=== PATIENT | female | born 1955 | race Two or more races ===

== ENCOUNTER 2021-12-26 16:35 | Emergency (ER) | payer MEDICARE, OTHER ==
[~2021-12-26] VITALS: Ht 162.6 cm; Wt 65.8 kg
[2021-12-26 16:40] VITALS: BP 145/70
--- NOTE | 2021-12-26 16:40 | NUR ---
BIBRA 89 C/O LEFT ANKLE PETTY AFTER CINDY GHER ANKLE AT THE [facility], NOT NOTABLE DEFORMITY UPON ARRIVAL. AWAITING MD ORDERS.
[2021-12-26] MEDS ORDERED: KETOROLAC TROMETHAMINE INJ 60 MG/2 ML VIAL IM ONE (18:00)
[2021-12-26] MEDS ORDERED: KETOROLAC TROMETHAMINE INJ 30 MG/ML VIAL ONE (18:16)
--- NOTE | 2021-12-26 21:37 | NUR ---
Patient discharged to home in stable condition. Written and verbal after care instructions given. Patient verbalizes understanding of instruction.
== END 2021-12-26 21:40 | disposition home or self-care (01) ==
LOC: ER 16:38
DX: S93.402A Sprain of unspecified ligament of left ankle, initial encounter (principal); S90.32XA Contusion of left foot, initial encounter; W00.0XXA Fall on same level due to ice and snow, initial encounter; Y93.41 Activity, dancing; Y92.89 Other specified places as the place of occurrence of the external cause; Y99.8 Other external cause status
CPT/HCPCS: 99283; 96372; 73610; J1885